=== PATIENT | female | born 1950 | race Caucasian/White ===

== ENCOUNTER → 2016-08-28 | Outpatient (CLI) | payer MEDICARE, BC, OTHER ==
--- NOTE | 2016-08-28 10:51 | REP ---
Low back pain. COMPARISON: 02/20/2014 There is syndesmophyte formation seen on the right at L1-2 with heavy partial syndesmophyte formation seen on the right at L2-3. These findings are stable. Vertebral body height and alignment is unchanged. The pedicles are intact bilaterally. There is anterior lipping at every level, heaviest at the L2-3 level with disc space narrowing, status quo. There is no evidence of spondylosis or spondylolisthesis. Degenerative facet joint change again seen at every level bilaterally. There is heavy syndesmophyte formation seen bilaterally involving the imaged lower thoracic spine. IMPRESSION: Chronic changes, as described above. Signed by Evaristo Anguiano DO 08/28/2016 11:36 A
--- NOTE | 2016-08-28 11:00 | REP ---
RIGHT HIP, PELVIS, THREE VIEWS: HISTORY: Back pain. There is no acute fracture or dislocation. There is narrowing of the joint spaces with associated sclerosis. IMPRESSION: Degenerative change as described above. Signed by Herbie Love MD 08/28/2016 11:05 A
[2016-08-28 13:29] LABS: ALBUMIN 3.6 GM/DL (3.2-5.2); ALBUMIN/GLOBULIN RATIO 1.16 (1.00-1.93); ALKALINE PHOSPHATASE 51 U/L (45-117); ALT/SGPT 23 U/L (12-78); ANION GAP 7 MEQ/L (8-16); AST/SGOT 10 U/L (15-37); BILIRUBIN,TOTAL 0.5 MG/DL (0.2-1.0); BLOOD UREA NITROGEN 16 MG/DL (7-18); CALCIUM LEVEL 8.7 MG/DL (8.8-10.2); CARBON DIOXIDE LEVEL 31 MEQ/L (21-32); CHLORIDE LEVEL 105 MEQ/L (98-107); CHOLESTEROL LEVEL 218 MG/DL (<200); CREATININE FOR GFR 0.86 MG/DL (0.55-1.02); FREE T4 1.17 NG/DL (0.76-1.46); GLOMERULAR FILTRATION RATE > 60.0 (>45); GLUCOSE, FASTING 84 MG/DL (80-110); MAGNESIUM LEVEL 2.4 MG/DL (1.8-2.4); POTASSIUM SERUM 4.8 MEQ/L (3.5-5.1); SODIUM LEVEL 143 MEQ/L (136-145); TOTAL PROTEIN 6.7 GM/DL (6.4-8.2); TRIGLYCERIDES LEVEL 215 MG/DL (<150)
== END ==
LOC: M ADAMS 08:19
PROVIDERS: ATTEND Family Medicine
DX: M51.36 Other intervertebral disc degeneration, lumbar region (principal); M25.851 Other specified joint disorders, right hip; M25.551 Pain in right hip; M54.5 Low back pain; G47.62 Sleep related leg cramps; R53.83 Other fatigue; E78.1 Pure hyperglyceridemia

== ENCOUNTER 2019-01-21 13:53 | Emergency (ER) | payer MEDICARE, BC, OTHER ==
[~2019-01-21] VITALS: Ht 162.6 cm; Wt 88.6 kg
[2019-01-21] MEDS: NORCO, ANEXSIA 5/325MG TABLET (HYDROcodone/ACETAMINOPHEN) PO ONE ×2 (14:43→14:45)
--- NOTE | 2019-01-21 18:19 | REP ---
HISTORY: Pain after trauma. FINDINGS: The compartments are symmetric and relatively well maintained. There is no acute fracture or destructive osseous lesion. Electronically Signed by Evaristo Anguiano DO 01/24/2019 02:32 P
[2019-01-21] MEDS ORDERED: IBUP-1114 PO (18:34)
[2019-01-21 18:43] VITALS: BP 182/82
--- NOTE | 2019-01-21 20:50 | REP ---
HISTORY: Knee pain. The examination was ordered and performed specifically to assess for Alonso's cyst. Multiple ultrasonographic images of the left knee popliteal fossa soft tissues shows no evidence of a cystic or solid mass. There is no evidence of a Alonso's cyst. Electronically Signed by Evaristo Anguiano DO 01/24/2019 02:52 P
== END 2019-01-21 19:15 | disposition home or self-care (01) ==
LOC: M ED 13:53 → EDBD 13:53 → M ED 19:15
DX: S93.402A Sprain of unspecified ligament of left ankle, initial encounter (principal); Z88.2 Allergy status to sulfonamides; X50.1XXA Overexertion from prolonged static or awkward postures, initial encounter; Y93.E8 Activity, other personal hygiene; Y99.8 Other external cause status; Y92.009 Unspecified place in unspecified non-institutional (private) residence as the place of occurrence of the external cause; F17.200 Nicotine dependence, unspecified, uncomplicated; M25.561 Pain in right knee

== ENCOUNTER → 2019-03-03 | Outpatient (REF) | payer MEDICARE, OTHER ==
[~2019-03-03] MED LIST: IBUP-1114 PO
[2019-03-08 11:34] LABS: DRVV SCREEN 36.5 SEC
[2019-03-08 11:40] LABS: PTT LUPUS TYPE ANTICOAG SCREEN 0.9 (0-1.2)
[2019-03-10 10:09] LABS: ANTI THROMBIN 3 ANTIGEN IMMUNO 98 % (72-124); ANTI THROMBIN 3 FUNCT ACTIVITY 106 % (75-135); F8 ACTIVITY FOR F8 PANEL 135 % (56-140); F8 ACTIVITY vWB FOR F8 PANEL 148 % (50-200); F8 ANTIGEN FOR F8 PANEL 228 % (50-200); FACTOR II ACTIVITY 108 % (50-154); PROTEIN C FUNCTIONAL ACTIVITY 176 % (73-180); PROTEIN S FUNCTIONAL ACTIVITY 18 % (63-140)
== END ==
LOC: M LABDRWAD 16:07
PROVIDERS: ATTEND Family Medicine
DX: I82.402 Acute embolism and thrombosis of unspecified deep veins of left lower extremity (principal)

== ENCOUNTER → 2019-04-07 | Outpatient (REF) | payer MEDICARE, OTHER ==
[2019-04-07 16:10] LABS: APPEARANCE, URINE HAZY (CLEAR); BACTERIA, URINE AUTO NEGATIVE (NEGATIVE); BILIRUBIN, URINE AUTO NEGATIVE (NEGATIVE); BLOOD, URINE BLOOD 2+ (NEGATIVE); COLOR, URINE YELLOW (YELLOW); GLUCOSE, URINE (UA) AUTO NEGATIVE (NEGATIVE); KETONE, URINE AUTO NEGATIVE (NEGATIVE); LEUKOCYTE ESTERASE, URINE AUTO NEGATIVE (NEGATIVE); MUCUS, URINE SMALL (NEGATIVE); NITRITE, URINE AUTO NEGATIVE (NEGATIVE); PROTEIN, URINE AUTO NEGATIVE (NEGATIVE); RBC, URINE AUTO 2 /HPF (0-3); SPECIFIC GRAVITY URINE AUTO 1.018 (1.002-1.035); SQUAMOUS EPITHELIAL CELL UR AU 4 /HPF (0-6); UROBILINOGEN, URINE AUTO 0.2 mg/dL (0.0-2.0); WBC, URINE AUTO 0 /HPF (0-3)
== END ==
LOC: M SFHCADAM 11:45
PROVIDERS: ATTEND Family Medicine
DX: Z87.448 Personal history of other diseases of urinary system (principal)
CPT/HCPCS: 81001; G0463

== ENCOUNTER → 2019-12-01 | Outpatient (REF) | payer MEDICARE, OTHER ==
[2019-12-01 15:08] LABS: BASO # 0.1 10^3/uL (0.0-0.2); BASO % 1.2 % (0.0-1.0); EOS # 0.2 10^3/uL (0.0-0.5); EOS % 4.3 % (0.0-3.0); HEMATOCRIT 45.2 % (36.0-47.0); HEMOGLOBIN 13.8 g/dl (12.0-15.5); LYMPH # 1.3 10^3/uL (1.5-5.0); LYMPH % 26.5 % (24.0-44.0); MEAN CORPUSCULAR HEMOGLOBIN 30.6 pg (27.0-33.0); MEAN CORPUSCULAR HGB CONC 30.5 g/dl (32.0-36.5); MEAN CORPUSCULAR VOLUME 100.2 fl (80.0-96.0); MONO # 0.4 10^3/uL (0.0-0.8); MONO % 8.5 % (0.0-5.0); NEUTROPHILS % 59.3 % (36.0-66.0); PLATELET COUNT, AUTOMATED 300 10^3/uL (150-450); RED BLOOD COUNT 4.51 10^6/uL (4.00-5.40); WHITE BLOOD COUNT 5.1 10^3/uL (4.0-10.0)
[2019-12-01 15:36] LABS: ALBUMIN 3.8 GM/DL (3.2-5.2); ALT/SGPT 19 U/L (12-78); BILIRUBIN,TOTAL 0.6 MG/DL (0.2-1.0); BLOOD UREA NITROGEN 11 MG/DL (7-18); CALCIUM LEVEL 9.3 MG/DL (8.8-10.2); CARBON DIOXIDE LEVEL 32 MEQ/L (21-32); CHLORIDE LEVEL 105 MEQ/L (98-107); CREATININE FOR GFR 0.78 MG/DL (0.55-1.30); GLOMERULAR FILTRATION RATE > 60.0 (>39); GLUCOSE, FASTING 83 MG/DL (70-100); POTASSIUM SERUM 4.9 MEQ/L (3.5-5.1); SODIUM LEVEL 141 MEQ/L (136-145)
[2019-12-01 15:40] LABS: ERYTHROCYTE SEDIMENTATION RATE 6 mm/hr (0-30)
== END ==
LOC: M LABDRWAD 13:58
PROVIDERS: ATTEND Physician Assistant
DX: L95.8 Other vasculitis limited to the skin (principal)

== ENCOUNTER → 2020-07-25 | Outpatient (CLI) | payer MEDICARE, BC ==
[2020-07-25 16:37] LABS: BASO # 0.1 10^3/uL (0.0-0.2); BASO % 0.8 % (0.0-1.0); EOS # 0.1 10^3/uL (0.0-0.5); HEMATOCRIT 45.1 % (36.0-47.0); HEMOGLOBIN 14.3 g/dl (12.0-15.5); LYMPH # 1.6 10^3/uL (1.5-5.0); LYMPH % 24.7 % (24.0-44.0); MEAN CORPUSCULAR HGB CONC 31.7 g/dl (32.0-36.5); MEAN CORPUSCULAR VOLUME 97.6 fl (80.0-96.0); MONO # 0.5 10^3/uL (0.0-0.8); MONO % 7.3 % (2.0-8.0); NEUTROPHILS # 4.3 10^3/uL (1.5-8.5); PLATELET COUNT, AUTOMATED 326 10^3/uL (150-450); RED BLOOD COUNT 4.62 10^6/uL (4.00-5.40); WHITE BLOOD COUNT 6.6 10^3/uL (4.0-10.0)
[2020-07-25 17:03] LABS: ALBUMIN 4.2 GM/DL (3.2-5.2); ALT/SGPT 20 U/L (12-78); BILIRUBIN,TOTAL 0.6 MG/DL (0.2-1.0); BLOOD UREA NITROGEN 10 MG/DL (7-18); CALCIUM LEVEL 10.1 MG/DL (8.8-10.2); CARBON DIOXIDE LEVEL 33 MEQ/L (21-32); CHLORIDE LEVEL 104 MEQ/L (98-107); CREATININE FOR GFR 0.74 MG/DL (0.55-1.30); GLOMERULAR FILTRATION RATE > 60.0 (>39); GLUCOSE, FASTING 104 MG/DL (70-100); NT-PRO BNP 106 PG/ML (<125); POTASSIUM SERUM 4.2 MEQ/L (3.5-5.1); SODIUM LEVEL 141 MEQ/L (136-145); TOTAL PROTEIN 7.3 GM/DL (6.4-8.2)
--- NOTE | 2020-07-25 17:15 | REP ---
INDICATION: PAIN AND SWELLING / CT IS STAT / LAB IS ROUTINE. COMPARISON: None. TECHNIQUE: Multiple ultrasonographic images of the deep venous structures of the right thigh were obtained from the common femoral vein to the popliteal vein along with Doppler interrogation and color flow Doppler images. FINDINGS: There is no abnormal echogenic material seen within any of the visualized deep venous structures that would suggest acute thrombosis. Coaptation is unremarkable throughout. Doppler interrogation shows an expected response to respiratory variability and augmentation. The color flow images show what appears to be a normal vascular pattern throughout. IMPRESSION: There is no ultrasonographic evidence of deep venous thrombosis involving any of the visualized deep venous structures of the right thigh, as described above. <Electronically signed by Evaristo Anguiano > 07/25/20 [id number]
== END ==
LOC: M RAD 15:13
PROVIDERS: ATTEND Family Medicine
DX: R60.9 Edema, unspecified (principal)
CPT/HCPCS: 36415; 80053; 83880; 84439; 84443; 85025; 93971; G0463

== ENCOUNTER → 2020-09-26 | Outpatient (CLI) | payer MEDICARE, BC, OTHER ==
--- NOTE | 2020-09-26 13:35 | REP ---
INDICATION: DYSPNEA ON EXERTION. COMPARISON: None. TECHNIQUE: PA and lateral FINDINGS: The superior mediastinal structures are midline. The cardiac silhouette is unremarkable in size, shape, and position. The diaphragmatic surfaces of the lungs are regular, and the costophrenic angles are clear. The pulmonary bourgeois are clear. The imaged osseous structures are intact. IMPRESSION: There is no acute cardiopulmonary disease. <Electronically signed by Evaristo Anguiano > 09/26/20 [id number]
== END ==
LOC: M ADAMS 12:51
PROVIDERS: ATTEND Family Medicine
DX: R06.00 Dyspnea, unspecified (principal)
CPT/HCPCS: 71046; G0463

== ENCOUNTER 2021-02-14 13:43 | Emergency (ER) | payer MEDICARE, BC, OTHER ==
[~2021-02-14] VITALS: Ht 162.6 cm; Wt 85.5 kg
--- OUTSIDE RECORDS SUMMARY | 2021-02-14 13:53 | CCD | Continuity of Care Document ---
Author Author [facility], [facility] Organization Unknown Address [address] [place] [address] Phone [phone] Care Team Providers Care Cell Stripper Final Name Role Phone Magaly Regalado D.O. AUTM [phone] AUTM Unavailable Problems Active Problems Provider Date Pulmonary function studies abnormal Odette BuckNPardeep Onse t: 01/10/2021 Wheezing Odette BuckN.PLondon Onset: 01/10/2021 Dyspnea Odette BuckNPardeep Onset: 01/10/2021 Social History Type Date Description Comments Sex Unknown Cigarette Use Pack Years - 48 Tobacco Use Start: Unknown Patient is a current smoker, smo kes every day Smoking Status Reviewed: 01/10/21 Patient is a current smoker, smokes every day Allergies and adverse reactions Active Allergies Criticality Reaction | Severity Comments Date Sulfa Unable to assess criticality Difficulty breathing, Hiv es | Severe 01/10/2021 Medications Active Medications SIG Qnty Indications Ordering Provide r Date Albuterol Sulfate HFA 108(90Base) mcg/Act Aerosol 2 puffs four times a day as needed 8.500gm Pretty Narayanan.N.P. 01/10/2021 Aerochamber Plus Librado-Vu Misc use with inhaler as needed 1units Pretty uBck.N.P. 01/10/2021 Vitamin D3 25mcg (1000 Ut) Capsule s 1 tab by mouth every day Unknown Multi Vitamin Tablets 1 by mouth every day Unknown Immunizations Description No Information Available Vital Signs Date Vital Result Comment 01/10/2021 2:01pm BP Systolic 140 mmHg BP Diastolic 76 mmHg Heart Rate 80 /min O2 % BldC Oximetry 98 % Respiratory Rate 18 /min Height 64 inches 5'4" Weight 189.12 lb BMI (Body Mass Index) 32.5 kg/m2 [place] Body Weight 120 lb Weight 85.787 kg BSA (Body Surface Area) 1.91 m2 Results Test Acquired Date Facility Test Result H/L Range Note FVL/[place] 01/10/2021 [facility] SEE IMAGE FVC-Pred 2.93 L FVC-Pre 1.58 L FVC-%Pred-Pre 54 L FVC-LLN 2.23 L Fev1-Pred 2.21 L Fev1-Pre 1.14 L Fev1-%Pred-Pre 51 L Fev1-LLN 1.62 L Fev6-Pred 2.79 L Fev6-Pre 1.58 L Fev6-%Pred-Pre 56 L Fev6-LLN 2.11 L Qiw4bkb-Lvqg 76 % Pwm8onn-Xje 72 % Qgv7cwv-%Pred-Pre 94 % Ndv3taf-BRK 66 % Rvb1fiu-Dglr 95 % Hqi0frg-Yvj 100 % Fxz7igj-%Pred-Pre 104 % FEFMax-Pred 5.49 L/E/sec FEFMax-Pre 2.04 L/E/sec FEFMax-%Pred-Pre 37 L/E/sec FEFMax-LLN 3.78 L/E/sec Tpb3978-Yoaa 1.80 L/E/sec Utp5964-Mpq 0.84 L/E/sec Vce8013-%Pred-Pre 46 L/E/sec Gma7442-YVL 0.56 L/E/sec ExpTime-Pre 6.19 sec Jbq2ycg0-Ogxk 79 % Szz8sox3-Fdo 72 % Axi8dew1-%Pred-Pre 90 % Wqs6rvy5-ISI 70 % Procedures Date Code Description Status 01/10/2021 83150 Office/Outpatient New Moderate M DM 45-59 Minutes Completed 01/10/2021 22552 Inhaler Teaching Completed 01/10/2021 04196 Spirometry Completed Medical Devices Description No Information Available Encounters Type Date Location Provider Dx Diagnosis Office Visit 01/10/2021 2:00p [facility] Grisel To wne, A.N.P. R06.02 Shortness of breath F17.218 Nicotine dependence, cigaret mary, w oth disorders R94.2 Abnormal results of pulmonar y function studies R05.9 Cough, unspecified R06.2 Wheezing Assessments Date Code Description Provider 01/25/2021 R06.02 Shortness of breath Pulmonary La [facility] 01/10/2021 R06.02 Shortness of breath Odette BuckNPardeep 01/10/2021 F17.218 Nicotine dependence, cigarettes, with other nicotine-induced disorders Loan Buck 01/10/2021 R94.2 Abnormal results of pulmonary fu nction studies Loan Buck 01/10/2021 R05.9 Cough, unspecified Pretty Buck .N.P. 01/10/2021 R06.2 Wheezing Sheron Buck Plan of Treatment Future Appointment(s):* 02/05/2021 9:30 am - Loan Buck at [facility] 01/10/2021 - Odette BuckNPardeep* R06.02 Shortness of breath * F17.218 Nicotine dependence, cigarettes, with other nicotine-induced disorders * R94.2 Abnormal results of pulmonary function studies * R05.9 Cough, unspecified * R06.2 Wheezing * * Follow up:* 1. Schedule pulmonary function testing with bronchodilator. 2. Return to see me/doctor in follow up with pulmonary function testing. Functional Status Description No Information Available Mental Status Description No Information Available Referrals Refer to Dr Reason for Referral Status Appt Grisel Carlos A.N.P. SILVEIRA Scheduled 01/08/2021 [facility] [address] [place], [place] [address] [phone]
--- OUTSIDE RECORDS SUMMARY | 2021-02-14 13:53 | CCD | Continuity of Care Document ---
Author Author Pulmonary [facility], [facility] Organization Unknown Address [address] [place] [address] Phone [phone] Care Team Providers Care Music Engraver Name Role Phone Magaly Regalado D.O. AUTM [phone] AUTM Unavailable Problems Active Problems Provider Date [...] use with inhaler as needed 1units Pretty Buck.N.P. 01/10/2021 Vitamin D3 25mcg (1000 Ut) Capsule [...] lb BMI (Body Mass Index) 32.5 kg/m2 [place] Body Weight 120 lb Weight 85.787 kg BSA (Body Surface Area) 1.91 m2 Results Test Acquired Date Facility Test Result H/L Range Note FVL/[place] 01/10/2021 [facility] SEE IMAGE FVC-Pred 2.93 L FVC-Pre 1.58 L FVC-%Pred-Pre 54 L FVC-LLN 2.23 L Fev1-Pred 2.21 L Fev1-Pre 1.14 L Fev1-%Pred-Pre 51 L Fev1-LLN 1.62 L Fev6-Pred 2.79 L Fev6-Pre 1.58 L Fev6-%Pred-Pre 56 L Fev6-LLN 2.11 L Mhi0gsa-Enzy 76 % Kbr8vau-Ccm 72 % Vwe3egj-%Pred-Pre 94 % Igg0vuk-WUD 66 % Ljf4lqf-Mmiy 95 % Fvn1uol-Rtt 100 % Dwb9jrk-%Pred-Pre 104 % FEFMax-Pred 5.49 L/E/sec FEFMax-Pre 2.04 L/E/sec FEFMax-%Pred-Pre 37 L/E/sec FEFMax-LLN 3.78 L/E/sec Cny6750-Bagz 1.80 L/E/sec Beu4062-Eoq 0.84 L/E/sec Tcg1807-%Pred-Pre 46 L/E/sec Ayr8941-SNL 0.56 L/E/sec ExpTime-Pre 6.19 sec Nsw1olu3-Efxk 79 % Irw2hdp4-Arl 72 % Rau4flv2-%Pred-Pre 90 % Wwz9ide9-VTX 70 % Procedures Date Code Description Status 01/25/2021 13529 Diffusing Capacity Completed 01/25/2021 24376 Plethysmography Determination Kerline ng Volumes & Per Airway Resist Completed 01/25/2021 62562 Bronchospasm Evaluation Complete d 01/10/2021 17067 Office/Outpatient New Moderate M DM 45-59 Minutes Completed 01/10/2021 97191 Inhaler Teaching Completed 01/10/2021 00754 Spirometry Completed Medical Devices Description No Information Available Encounters Type Date Location Provider Dx Diagnosis Office Visit 01/10/2021 2:00p [facility] Grisel To Odette warrenNPardeep R06.02 Shortness of breath F17.218 Nicotine dependence, [...] Loan Buck 01/10/2021 R05.9 Cough, unspecified Pretty BuckNPardeep 01/10/2021 R06.2 Wheezing Sheron Buck Plan of Treatment Future Appointment(s):* 02/05/2021 9:30 am - Loan Buck at [facility] Pulmonary/Thoracic 01/10/2021 - Loan Buck* R06.02 Shortness of breath * F17.218 Nicotine [...] to Dr Reason for Referral Status Appt Date Grisel Marcos A.N.P. DOE Scheduled 01/08/2021 [facility] [address] [place], [place] [address] [phone]
--- OUTSIDE RECORDS SUMMARY | 2021-02-14 13:53 | CCD | Continuity of Care Document ---
Author Author Pulmonary Lab, [facility] Organization Unknown Address [address] [place] [address] Phone [phone] Care Team Providers Care Customer Resolution Specialist Name Role Phone Magaly Regalado D.O. AUTM [phone] AUTM Unavailable Problems Active Problems Provider Date [...] four times a day as needed 8.500gm Pertty Narayanan.N.P. 01/10/2021 Aerochamber Plus Librado-Vu Misc use [...] lb BMI (Body Mass Index) 32.5 kg/m2 [place] Body Weight 120 lb Weight 85.787 kg BSA (Body Surface Area) 1.91 m2 Results Test Acquired Date Facility Test Result H/L Range Note FVL/[place] 01/10/2021 [facility] SEE IMAGE FVC-Pred 2.93 L FVC-Pre 1.58 L FVC-%Pred-Pre 54 L FVC-LLN 2.23 L Fev1-Pred 2.21 L Fev1-Pre 1.14 L Fev1-%Pred-Pre 51 L Fev1-LLN 1.62 L Fev6-Pred 2.79 L Fev6-Pre 1.58 L Fev6-%Pred-Pre 56 L Fev6-LLN 2.11 L Plg0oqr-Csms 76 % Nhi6dsn-Asd 72 % Zxw5gye-%Pred-Pre 94 % Kme9fzd-SDU 66 % Qjr6zbj-Ydjw 95 % Njz6bpy-Lnz 100 % Ell2uvs-%Pred-Pre 104 % FEFMax-Pred 5.49 L/E/sec FEFMax-Pre 2.04 L/E/sec FEFMax-%Pred-Pre 37 L/E/sec FEFMax-LLN 3.78 L/E/sec Owt9682-Sksg 1.80 L/E/sec Yfb9268-Aou 0.84 L/E/sec Psh1708-%Pred-Pre 46 L/E/sec Qni9904-FTT 0.56 L/E/sec ExpTime-Pre 6.19 sec Dqh0ncm5-Xboq 79 % Hqt6rsk0-Bks 72 % Gzp3wcn6-%Pred-Pre 90 % Hhe2lvt5-SCL 70 % Procedures Date Code Description Status 01/10/2021 60394 Office/Outpatient New Moderate M DM 45-59 Minutes Completed 01/10/2021 25827 Inhaler Teaching Completed 01/10/2021 89221 Spirometry Completed Medical Devices Description No Information Available Encounters Type Date Location Provider Dx Diagnosis Office Visit 01/10/2021 2:00p [facility] Grisel To wne, A.N.P. R06.02 Shortness [...] 02/05/2021 9:30 am - Loan Buck at [facility] 01/10/2021 - Odette BuckNPardeep* R06.02 Shortness [...] Appt Grisel Carlos A.N.P. SILVEIRA Scheduled 01/08/2021 [facility] Pul[facility] [address] [place], [place] [address] [phone]
--- OUTSIDE RECORDS SUMMARY | 2021-02-14 13:54 | CCD | Continuity of Care Document ---
Author Author Pulmonary Lab, [facility] Organization Unknown Address [address] [place] [address] Phone [phone] Care Team Providers Care Diver Pumper Name Role Phone Magaly Regalado D.O. AUTM [phone] AUTM Unavailable Problems Active Problems Provider Date [...] lb BMI (Body Mass Index) 32.5 kg/m2 [place] Body Weight 120 lb Weight 85.787 kg BSA (Body Surface Area) 1.91 m2 Results Test Acquired Date Facility Test Result H/L Range Note FVL/[place] 01/10/2021 [facility] SEE IMAGE FVC-Pred 2.93 L FVC-Pre 1.58 L FVC-%Pred-Pre 54 L FVC-LLN 2.23 L Fev1-Pred 2.21 L Fev1-Pre 1.14 L Fev1-%Pred-Pre 51 L Fev1-LLN 1.62 L Fev6-Pred 2.79 L Fev6-Pre 1.58 L Fev6-%Pred-Pre 56 L Fev6-LLN 2.11 L Cir7dod-Srvl 76 % Ltq4hnz-Qbe 72 % Swh5zog-%Pred-Pre 94 % Mku6gfl-ZZU 66 % Lpz2itf-Fsxd 95 % Qqu6ktv-Eki 100 % Hoc7uep-%Pred-Pre 104 % FEFMax-Pred 5.49 L/E/sec FEFMax-Pre 2.04 L/E/sec FEFMax-%Pred-Pre 37 L/E/sec FEFMax-LLN 3.78 L/E/sec Qag1550-Gjzp 1.80 L/E/sec Zru6281-Xzh 0.84 L/E/sec Nyz1170-%Pred-Pre 46 L/E/sec Esv0472-UJF 0.56 L/E/sec ExpTime-Pre 6.19 sec Txu3ekv5-Lsij 79 % Shv1tpz3-Zwc 72 % Lno2xcr5-%Pred-Pre 90 % Plh0egz9-HTW 70 % Procedures Date Code Description Status 01/10/2021 09585 Office/Outpatient New Moderate M DM 45-59 Minutes Completed 01/10/2021 15445 Inhaler Teaching Completed 01/10/2021 62786 Spirometry Completed Medical Devices Description No Information Available Encounters Type Date Location Provider Dx Diagnosis Office Visit 01/10/2021 2:00p [facility] Grisel To wne, A.N.P. R06.02 Shortness [...] 02/05/2021 9:30 am - Loan Buck at [facility] 01/10/2021 - dOette BuckNPardeep* R06.02 Shortness of breath * F17.218 [...] Appt Grisel Carlos A.N.P. SILVEIRA Scheduled 01/08/2021 [facility] [address] [place], [place] [address] [phone]
--- OUTSIDE RECORDS SUMMARY | 2021-02-14 13:54 | CCD | Continuity of Care Document ---
Author Rose[facility] arie Arias Organization Unknown Address [address] [place] [address] Phone [phone] Care Team Providers Care Assistant Editor Name Role Phone Magaly Regalado D.O. AUTM AUTM Unavailable Problems Active Problems Provider Date Pulmonary function studies abnormal Loan Buck Onse t: 01/10/2021 Wheezing Loan Buck Onset: 01/10/2021 Dyspnea Loan Buck Onset: 01/10/2021 Social History Type Date Description [...] four times a day as needed 8.500gm Odette NarayananNPardeep 01/10/2021 Aerochamber Plus Librado-Vu Misc use with inhaler as needed 1units Odette BuckNLondonPLondon 01/10/2021 Vitamin D3 25mcg (1000 Ut) Capsule [...] lb BMI (Body Mass Index) 32.5 kg/m2 [place] Body Weight 120 lb Weight 85.787 kg BSA (Body Surface Area) 1.91 m2 Results Test Acquired Date Facility Test Result H/L Range Note FVL/[place] 01/10/2021 [facility] SEE IMAGE FVC-Pred 2.93 L FVC-Pre 1.58 L FVC-%Pred-Pre 54 L FVC-LLN 2.23 L Fev1-Pred 2.21 L Fev1-Pre 1.14 L Fev1-%Pred-Pre 51 L Fev1-LLN 1.62 L Fev6-Pred 2.79 L Fev6-Pre 1.58 L Fev6-%Pred-Pre 56 L Fev6-LLN 2.11 L Eyn3cxc-Epcd 76 % Oau3pyg-Auz 72 % Lgt3ufa-%Pred-Pre 94 % Djy5mqm-OAZ 66 % Vsn6vxz-Pywa 95 % Pkm7owf-Oce 100 % Eyh1ret-%Pred-Pre 104 % FEFMax-Pred 5.49 L/E/sec FEFMax-Pre 2.04 L/E/sec FEFMax-%Pred-Pre 37 L/E/sec FEFMax-LLN 3.78 L/E/sec Pwb2158-Yeyf 1.80 L/E/sec Cft0284-Ldf 0.84 L/E/sec Avq9929-%Pred-Pre 46 L/E/sec Frk1508-AXC 0.56 L/E/sec ExpTime-Pre 6.19 sec Xbc1ibx6-Mkpp 79 % Efi4oat6-Ipd 72 % Wde6phi6-%Pred-Pre 90 % Ahr9qmh3-LPY 70 % Procedures Date Code Description Status 01/10/2021 00848 Office/Outpatient New Moderate M DM 45-59 Minutes Completed 01/10/2021 18785 Inhaler Teaching Completed 01/10/2021 90841 Spirometry Completed Medical Devices Description No Information Available Encounters Type Date Location Provider Dx Diagnosis Office Visit 01/10/2021 2:00p [facility] Grisel To wne, A.N.P. R06.02 Shortness of breath F17.218 Nicotine dependence, cigaret mary, w oth disorders R94.2 Abnormal results of pulmonar y function studies R05.9 Cough, unspecified R06.2 Wheezing Assessments Date Code Description Provider 01/10/2021 R06.02 Shortness of breath Odette BuckN.PLondon 01/10/2021 F17.218 Nicotine dependence, cigarettes, with other nicotine-induced disorders Odette BuckNPardeep 01/10/2021 R94.2 Abnormal results of pulmonary fu nction studies Odette BuckN.PLondon 01/10/2021 R05.9 Cough, unspecified Pretty BuckN.Ha 01/10/2021 R06.2 Wheezing Odette BuckNLondon Bonner Plan of Treatment Future Appointment(s):* 02/05/2021 9:30 am - Odette BuckN.Ha at [facility] Pulmonary/Thoracic * 01/25/2021 3:00 pm - Pulmonary Lab at [facility] Pulmonary/Thoracic 01/10/2021 - Odette BuckN.Ha* R06.02 Shortness of breath * F17.218 Nicotine dependence, cigarettes, with other nicotine-induced disorders * R94.2 Abnormal results of pulmonary function studies * R05.9 Cough, unspecified * R06.2 Wheezing * * New Labs:* PFT/HGB Off/No Meds, Ordered: 01/10/21 * Follow up:* 1. Schedule pulmonary function testing with bronchodilator. 2. Return to see me/doctor in follow up with pulmonary function testing. Functional Status Description No Information Available Mental Status Description No Information Available Referrals Refer to Dr Reason for Referral Status Appt Grisel Carlos A.NPardeep SILVEIRA Scheduled 01/08/2021 [facility] Pul[facility] [address] [place], [place] [address] [phone]
--- OUTSIDE RECORDS SUMMARY | 2021-02-14 13:54 | CCD | Continuity of Care Document ---
Author Rose Marie Arias Organization Unknown Address [address] [place] [address] Phone [phone] Care Team Providers Care Salvage Mechanic Name Role Phone Magaly Regalado D.O. AUTM AUTM Unavailable Problems Active Problems Provider Date Pulmonary function studies abnormal RAMIRO Buck Onse t: 01/10/2021 Wheezing RAMIRO Buck Onset: 01/10/2021 Dyspnea RAMIRO Buck Onset: 01/10/2021 Social History Type Date [...] four times a day as needed 8.500gm RAMIRO Narayanan 01/10/2021 Aerochamber Plus Librado-Vu Misc use with inhaler as needed 1units RAMIRO Buck 01/10/2021 Vitamin D3 25mcg (1000 Ut) Capsule [...] lb BMI (Body Mass Index) 32.5 kg/m2 [place] Body Weight 120 lb Weight 85.787 kg [...] L Fev6-%Pred-Pre 56 L Fev6-LLN 2.11 L Bbi3srn-Cyvy 76 % Gpv7msl-Xhv 72 % Cmv7ogf-%Pred-Pre 94 % Hkv3uby-XDK 66 % Rsr6axc-Ofms 95 % Vir8tba-Meh 100 % Pxu7rna-%Pred-Pre 104 % FEFMax-Pred 5.49 L/E/sec FEFMax-Pre 2.04 L/E/sec FEFMax-%Pred-Pre 37 L/E/sec FEFMax-LLN 3.78 L/E/sec Ren3947-Vtuh 1.80 L/E/sec Gto3261-Vkv 0.84 L/E/sec Jbg3111-%Pred-Pre 46 L/E/sec Dgg0642-DWF 0.56 L/E/sec ExpTime-Pre 6.19 sec Tll1xwd8-Qkxj 79 % Wlv7sll2-Fqz 72 % Gir0aas7-%Pred-Pre 90 % Ubr6qdw2-CCE 70 % Procedures Description No Information Available Medical Devices Description No Information Available Encounters Description No Information Available Assessments Date Code Description Provider 01/10/2021 R06.02 Shortness of breath RAMIRO Buck 01/10/2021 F17.218 Nicotine dependence, cigarettes, with other nicotine-induced disorders RAMIRO Buck 01/10/2021 R94.2 Abnormal results of pulmonary fu nction studies RAMIRO Buck 01/10/2021 R05.9 Cough, unspecified Pretty Buck TELEPHONE SWITCHBOARD OPERATOR 01/10/2021 R06.2 Wheezing RAMIRO Buck Plan of Treatment Future Appointment(s):* 02/05/2021 9:30 am - RAMIRO Buck at [facility] Pulmonary/Thoracic * 01/25/2021 3:00 pm - Pulmonary Lab at [facility] Pulmonary/Thoracic 01/10/2021 - RAMIRO Buck* R06.02 Shortness of breath * F17.218 [...] Date Grisel Marcos A.N.P. DOE Scheduled 01/08/2021 [facility] [address] [place], [place] [address] [phone]
--- OUTSIDE RECORDS SUMMARY | 2021-02-14 13:54 | CCD | Continuity of Care Document ---
Author Rose Marie Arias Organization Unknown Address [address] [place] [address] Phone [phone] Care Team Providers Care Machine Hand Name Role Phone Magaly Regalado D.O. AUTM [...] lb BMI (Body Mass Index) 32.5 kg/m2 [place] Body Weight 120 lb Weight 85.787 kg [...] L Fev6-%Pred-Pre 56 L Fev6-LLN 2.11 L Dka1usy-Etsx 76 % Rrn3iwz-Efs 72 % Shh0pur-%Pred-Pre 94 % Ekd7fie-ORI 66 % Pwp9hmf-Fgvm 95 % Dry8nzx-Dwy 100 % Lwh0twx-%Pred-Pre 104 % FEFMax-Pred 5.49 L/E/sec FEFMax-Pre 2.04 L/E/sec FEFMax-%Pred-Pre 37 L/E/sec FEFMax-LLN 3.78 L/E/sec Gev8544-Vrfd 1.80 L/E/sec Yez1813-Egi 0.84 L/E/sec Hor8748-%Pred-Pre 46 L/E/sec Szc0151-NUJ 0.56 L/E/sec ExpTime-Pre 6.19 sec Tsf8rbo6-Iedb 79 % Vlm5tdq9-Fkk 72 % Zfn9sbh0-%Pred-Pre 90 % Gsi4trs4-BVI 70 % Procedures Description No Information Available Medical Devices Description No Information Available Encounters Description No Information Available Assessments Date Code Description Provider 01/10/2021 R06.02 Shortness of breath RAMIRO Buck 01/10/2021 F17.218 Nicotine dependence, cigarettes, with other nicotine-induced disorders RAMIRO Buck 01/10/2021 R94.2 Abnormal results of pulmonary fu nction studies RAMIRO Buck 01/10/2021 R05.9 Cough, unspecified Pretty Buck MILITARY TECHNOLOGY MANAGER 01/10/2021 R06.2 Wheezing RAMIRO Buck Plan of Treatment Future Appointment(s):* 02/05/2021 9:30 am - RAMIRO Buck at [facility] Pulmonary/Thoracic * 01/25/2021 3:00 pm - Pulmonary Lab at [facility] Pulmonary/Thoracic 01/10/2021 - RAMIRO Buck* R06.02 Shortness [...] Date Grisel Marcos A.N.P. DOE Scheduled 01/08/2021 [facility] Pulmonary [address] [place], [place] [address] [phone]
--- OUTSIDE RECORDS SUMMARY | 2021-02-14 13:54 | CCD | Continuity of Care Document ---
Author Rose Marie Arias Organization Unknown Address [address] [place] [address] Phone [phone] Care Team Providers Care Science Interpreter Name Role Phone Magaly Regalado D.O. AUTM [phone] AUTM Unavailable Problems Active Problems Provider Date [...] lb BMI (Body Mass Index) 32.5 kg/m2 [place] Body Weight 120 lb Weight 85.787 kg [...] L Fev6-%Pred-Pre 56 L Fev6-LLN 2.11 L Omv6mao-Qziv 76 % Mab9rci-Okw 72 % Wad9sfd-%Pred-Pre 94 % Mvu5ceh-PVA 66 % Tei1siu-Ddwl 95 % Psh5oso-Agg 100 % Rst4fhr-%Pred-Pre 104 % FEFMax-Pred 5.49 L/E/sec FEFMax-Pre 2.04 L/E/sec FEFMax-%Pred-Pre 37 L/E/sec FEFMax-LLN 3.78 L/E/sec Dvx2143-Qzwb 1.80 L/E/sec Qyb7424-Ney 0.84 L/E/sec Ktq5344-%Pred-Pre 46 L/E/sec Vgf8445-AAP 0.56 L/E/sec ExpTime-Pre 6.19 sec Toe1sdb5-Puyb 79 % Kud9uxo8-Enk 72 % Hqe1swc5-%Pred-Pre 90 % Ruv1npc5-POS 70 % Procedures Description No Information Available Medical Devices Description No Information Available Encounters Description No Information Available Assessments Date Code Description Provider 01/10/2021 R06.02 Shortness of breath RAMIRO Buck 01/10/2021 F17.218 Nicotine dependence, cigarettes, with other nicotine-induced disorders RAMIRO Buck 01/10/2021 R94.2 Abnormal results of pulmonary fu nction studies RAMIRO Buck 01/10/2021 R05.9 Cough, unspecified Pretty Buck INFRASTRUCTURE ANALYST 01/10/2021 R06.2 Wheezing RAMIRO Buck Plan of Treatment Future Appointment(s):* 02/05/2021 9:30 am - RAMIRO Buck at [facility] Pulmonary/Thoracic * 01/25/2021 3:00 pm - Pulmonary Lab at [facility] Pulmonary/Thoracic 01/10/2021 - RAMIRO Buck* R06.02 Shortness [...] Date Grisel Marcos A.N.P. DOE Scheduled 01/08/2021 [facility] Pulmonary [address] [place], [place] [address] [phone]
--- OUTSIDE RECORDS SUMMARY | 2021-02-14 13:54 | CCD ---
Author Author [facility] Organization [facility] Address Unknown Phone Unavailable Care Team Providers Care Unleavened Dough Mixer Name Role Phone Hemant, L Grisel CABINET WORKER Unavailable Unavailable Hemant, L Grisel CABINET WORKER Unavailable Unavailable Hemant, L Grisel CABINET WORKER Unavailable Unavailable Hemant, L Grisel CABINET WORKER Unavailable Unavailable Hemant, L Grisel CABINET WORKER Unavailable Unavailable Hemant, L Grisel CABINET WORKER Unavailable Unavailable Hemant, L Grisel CABINET WORKER Unavailable Unavailable Hemant, L Grisel CABINET WORKER Unavailable Unavailable Hemant, L Grisel CABINET WORKER Unavailable Unavailable Hemant, L Grisel CABINET WORKER Unavailable Unavailable Hemant, L Grisel CABINET WORKER Unavailable Unavailable Hemant, L Grisel CABINET WORKER Unavailable Unavailable Hemant, L Grisel CABINET WORKER Unavailable Unavailable Hemant, L Grisel CABINET WORKER Unavailable Unavailable Hemant, L Grisel CABINET WORKER Unavailable Unavailable Hemant, L Grisel CABINET WORKER Unavailable Unavailable Hemant, L Grisel CABINET WORKER Unavailable Unavailable Hemant, L Grisel CABINET WORKER Unavailable Unavailable Hemant, L Grisel CABINET WORKER Unavailable Unavailable Hemant, L Grisel CABINET WORKER Unavailable Unavailable Hemant, L Grisel CABINET WORKER Unavailable Unavailable Hemant, L Grisel CABINET WORKER Unavailable Unavailable Hemant, L Grisel CABINET WORKER Unavailable Unavailable Hemant, L Grisel CABINET WORKER Unavailable Unavailable Hemant, L Grisel CABINET WORKER Unavailable Unavailable ADOLFO-YADIRA, BRODY DO Unavailable Unavailable ADOLFO-YADIRA, BRODY DO Unavailable Unavailable ADOLFO-YADIRA, BRODY DO Unavailable Unavailable ADOLFO-YADIRA, BRODY DO Unavailable Unavailable ADOLFO-YADIRA, BRODY DO Unavailable Unavailable ADOLFO-YADIRA, BRODY DO Unavailable Unavailable ADOLFO-YADIRA, BRODY DO Unavailable Unavailable ADOLFO-YADIRA, BRODY DO Unavailable Unavailable ADOLFO-YADIRA, BRODY DO Unavailable Unavailable ADOLFO-YADIRA, BRODY DO Unavailable Unavailable ADOLFO-YADIRA, BRODY DO Unavailable Unavailable ADOLFO-YADIRA, BRODY DO Unavailable Unavailable ADOLFO-YADIRA, BRODY DO Unavailable Unavailable ADOLFO-YADIRA, BRODY DO Unavailable Unavailable ADOLFO-YADIRA, BRODY DO Unavailable Unavailable ADOLFO-YADIRA, BRODY DO Unavailable Unavailable ADOLFO-YADIRA, BRODY DO Unavailable Unavailable ADOLFO-YADIRA, BRODY DO Unavailable Unavailable ADOLFO-YADIRA, BRODY DO Unavailable Unavailable ADOLFO-YADIRA, BRODY DO Unavailable Unavailable ADOLFO-YADIRA, BRODY DO Unavailable Unavailable ADOLFO-YADIRA, BRODY DO Unavailable Unavailable ADOLFO-YADIRA, BRODY DO Unavailable Unavailable ADOLFO-YADIRA, BRODY DO Unavailable Unavailable ADOLFO-YADIRA, BRODY DO Unavailable Unavailable ADOLFO-YADIRA, BRODY DO Unavailable Unavailable ADOLFO-YADIRA, BRODY DO Unavailable Unavailable ADOLFO-YADIRA, BRODY DO Unavailable Unavailable ADOLFO-YADIRA, BRODY DO Unavailable Unavailable ADOLFO-YADIRA, BRODY DO Unavailable Unavailable ADOLFO-YADIRA, BRODY DO Unavailable Unavailable ADOLFO-YADIRA, BRODY DO Unavailable Unavailable ADOLFO-YADIRA, BRODY DO Unavailable Unavailable ADOLFO-YADIRA, BRODY DO Unavailable Unavailable ADOLFO-YADIRA, BRODY DO Unavailable Unavailable ADOLFO-YADIRA, BRODY DO Unavailable Unavailable ADOLFO-YADIRA, BRODY DO Unavailable Unavailable ADOLFO-YADIRA, BRODY DO Unavailable Unavailable ADOLFO-YADIRA, BRODY DO Unavailable Unavailable ADOLFO-YADIRA, BRODY DO Unavailable Unavailable ADOLFO-YADIRA, BRODY DO Unavailable Unavailable ADOLFO-YADIRA, BRODY DO Unavailable Unavailable ADOLFO-YADIRA, BRODY DO Unavailable Unavailable ADOLFO-YADIRA, BRODY DO Unavailable Unavailable ADOLFO-YADIRA, BRODY DO Unavailable Unavailable ADOLFO-YADIRA, BRODY DO Unavailable Unavailable ADOLFO-YADIRA, BRODY DO Unavailable Unavailable ADOLFO-YADIRA, BRODY DO Unavailable Unavailable ADOLFO-YADIRA, BRODY DO Unavailable Unavailable ADOLFO-YADIRA, BRODY DO Unavailable Unavailable ADOLFO-YADIRA, BRODY DO Unavailable Unavailable ADOLFO-YADIRA, BRODY DO Unavailable Unavailable ADOLFO-YADIRA, BRODY DO Unavailable Unavailable ADOLFO-YADIRA, BRODY DO Unavailable Unavailable ADOLFO-YADIRA, BRODY DO Unavailable Unavailable ADOLFO-YADIRA, BRODY DO Unavailable Unavailable ADOLFO-YADIRA, BRODY DO Unavailable Unavailable ADOLFO-YADIRA, BRODY DO Unavailable Unavailable ADOLFO-YADIRA, BRODY DO Unavailable Unavailable ADOLFO-YADIRA, BRODY DO Unavailable Unavailable ADOLFO-YADIRA, BRODY DO Unavailable Unavailable ADOLFO-YADIAR, BRODY DO Unavailable Unavailable ADOLFO-YADIRA, BRODY DO Unavailable Unavailable ADOLFO-YADIRA, BRODY DO Unavailable Unavailable ADOLFO-YADIRA, BRODY DO Unavailable Unavailable ADOLFO-YADIRA, BRODY DO Unavailable Unavailable ADOLFO-YADIRA, BRODY DO Unavailable Unavailable ADOLFO-YADIRA, BRODY DO Unavailable Unavailable ADOLFO-YADIRA, BRODY DO Unavailable Unavailable ADOLFO-YADIRA, BRODY DO Unavailable Unavailable ADOLFO-YADIRA, BRODY DO Unavailable Unavailable ADOLFO-YADIRA, BRODY DO Unavailable Unavailable ADOLFO-YADIRA, BRODY DO Unavailable Unavailable ADOLFO-YADIRA, BRODY DO Unavailable Unavailable ADOLFO-YADIRA, BRODY DO Unavailable Unavailable ADOLFO-YADIRA, BRODY DO Unavailable Unavailable ADOLFO-YADIRA, BRODY DO Unavailable Unavailable ADOLFO-YADIRA, BRODY DO Unavailable Unavailable ADOLFO-YADIRA, BRODY DO Unavailable Unavailable ADOLFO-YADIRA, BRODY DO Unavailable Unavailable ADOLFO-YADIRA, BRODY DO Unavailable Unavailable ADOLFO-YADIRA, BRODY DO Unavailable Unavailable ADOLFO-YADIRA, BRODY DO Unavailable Unavailable ADOLFO-YADIRA, BRODY DO Unavailable Unavailable Re-disclosure Warning The records that you are about to access may contain information from federally-assisted alcohol or drug abuse programs. If such information is present, then the following federally mandated warning applies: This information has been disclosed to you from records protected by federal confidentiality rules (42 CFR part 2). The federal rules prohibit you from making any further disclosure of this information unless further disclosure is expressly permitted by the written consent of the person to whom it pertains or as otherwise permitted by 42 CFR part 2. A general authorization for the release of medical or other information is NOT sufficient for this purpose. The Federal rules restrict any use of the information to criminally investigate or prosecute any alcohol or drug abuse patient.The records that you are about to access may contain highly sensitive health information, the redisclosure of which is protected by Article 27-F of the [facility] Public Health law. If you continue you may have access to information: Regarding HIV / AIDS; Provided by facilities licensed or operated by the [facility] Office of Mental Health; or Provided by the [facility] Office for People With Developmental Disabilities. If such information is present, then the following [facility] mandated warning applies: This information has been disclosed to you from confidential records which are protected by state law. State law prohibits you from making any further disclosure of this information without the specific written consent of the person to whom it pertains, or as otherwise permitted by law. Any unauthorized further disclosure in violation of state law may result in a fine or shelter sentence or both. A general authorization for the release of medical or other information is NOT sufficient authorization for further disc losure. Family History Family Member Name Family Member Gender Family Member Status Date o f Status Description Data Source(s) Unknown Female Problem MEDENT ([facility]) Unknown Unknown Problem MEDENT ([facility]) Encounters Encounter Providers Location Date Indications Data Source(s ) Outpatient Attender: Grisel Gibson/Mickey/Rosalio/Odilia 01/10/2021 02:00:00 PM EDT MEDENT ([facility]) Outpatient Referrer: BRODY BAKER_[id number] 10/26/2020 05:31:32 PM EDT [facility] [place] [address] [facility] [address] 09/26/2020 12:00:00 AM EDT eCW1 ([facility]) [place] [address] [address] [address] 09/04/2020 12:00:00 AM EDT eCW1 ([facility]) [place] [address] [address] 07/25/2020 12:00:00 AM EDT eCW1 ([facility]) Unknown [address] [address] 07/23/2020 12:00:00 AM EDT eCW1 ([facility]) Office Visit, Est Pt., Level [address] FC [address] [place] [address] 01/05/2020 12:00:00 AM EDT eCW1 ([facility]) Medications Medication Brand Name Start Date Product Form Dose Route Admi nistrative Instructions Pharmacy Instructions Status Indications Reaction Description Data Source(s) INHALER, ASSIST DEVICES 01/10/2021 12:00:00 AM EDT spacer 1 USE WITH INHALER NEEDED USE WITH INHALER NEEDED SOLD: 01/11/2021 [facility] Aerochamber Plus Librado-Vu 01/10/2021 12:00:00 AM EDT active MEDENT ([facility], ) 60 ACTUAT Albuterol 0.09 MG/ACTUAT Metered Dose Inhaler Albu terol Sulfate HFA 01/10/2021 12:00:00 AM EDT RESPIRATORY active MEDENT ([facility], ) 90 mcg/actuation 01/10/2021 12:00:00 AM EDT HFA aerosol inha ler 8 INHALE TWO PUFFS BY MOUTH FOUR TIMES A DAY NEEDED INHALE TWO PUFFS BY MOUTH FOUR TIMES A DAY NEEDED SOLD: 01/11/2021 [facility] g[facility] 0.12 % 01/01/2021 12:00:00 AM EDT mouthwash [address] [place] IN THE MOUTH ONCE PER DAY AFTER BRUSHING TEETH, SWISH IN MOUTH FOR 30 [address] THEN SPIT OUT PLACE 15 MLS IN THE MOUTH ONCE PER DAY AFTER BRUSHING TEETH, SWISH IN MOUTH FOR 30 SECONDS THEN SPIT OUT SOLD: 01/01/2021 [facility] Insurance Providers Payer name Policy type / Coverage type Policy ID Covered republican ID Covered republican's relationship to rudd Policy Rudd Plan Information BCBS EMPIRE [place] DIV [id number] SP [id number] BCBS EMPIRE [place] DIV [id number] SP [id number] Medicare Primary [id number] [id number] [place] Plan Secondary [id number] BCBS EMPIRE [place] DIV [id number] MEDICARE [id number] SP [id number] [place] 200/700 [id number] HU [id number] [place] [id number] HU [id number] [facility] [id number] SP [id number] [place] [id number] HU [id number] [facility] [id number] SP [id number] BCBS EMPIRE GIL[place] DIV [id number] SP [id number] MEDICARE C [id number] S [id number] EMPIRE (STATE EMP) O [id number] S [id number] MEDICARE C [id number] S [id number] D [place] Plan Medigap Part B [id number] Self [id number] Medicare Upstate Medicare Primary [id number] Self [id number] [place] Plan Medigap Part B [id number] Self [id number] Medicare Up[place] Medicare Primary [id number] Self [id number] SELF PAY ONLY 0 SP [id number] [place] Plan Medigap Part B [id number] Self Medicare [place] Medicare Primary [id number] Self [facility] [place] Med[place] Part B [id number] Self Medicare Natl Gov't Servi Medicare Primary [id number] Self [facility] UNAVAILABLE UNAVAILABLE P UNAVAILABLE UNAVAILA BLE [facility] [id number] [facility] 200/700 [id number] [facility] GILMA DIV [id number] SP [id number] [facility] [id number] 18 [id number] MEDICARE [id number] SP [id number] [id number] [facility] [id number] SP [id number] BC EMPIR GILMA DIV [id number] SP [id number] Problems, Conditions, and Diagnoses Code Display Name Description Problem Type Effective Dates Data Source(s) R06.02 Dyspnea Dyspnea Problem 01/10/2021 12:00:00 AM ED T MEDENT ([facility], ) R06.2 Wheezing Wheezing Problem 01/10/2021 12:00:00 AM ED T MEDENT ([facility], ) R94.2 Pulmonary function studies abnormal Pulmonary fu nction studies abnormal Problem 01/10/2021 12:00:00 AM EDT MEDENT ([facility] steve ) F17.210 [id number] Cigarette nicotine dependence without com plication Problem 01/05/2020 12:00:00 AM EDT eCW1 ([facility]) Surgeries/Procedures Procedure Description Date Indications Data Source(s) Bronchospasm Evaluation 01/25/2021 12:00:00 AM EDT MEDENT ([facility], ) Plethysmography Determination Lung Volumes & Per Airway Resi st 01/25/2021 12:00:00 AM EDT MEDENT ([facility], ) DIFFUSING CAPACITY 01/25/2021 12:00:00 AM EDT MEDENT ([facility], ) Spirometry 01/10/2021 12:00:00 AM EDT M EDENT ([facility], ) DEMO&/EVAL OF PT UTILIZ AERSL GEN/NEB/INHLR/IPPB 01/10 12:00:00 AM EDT MEDENT ([facility]) OFFICE OUTPATIENT NEW 45 MINUTES 01/10/2021 12:00:00 A M EDT MEDENT ([facility]) Results ID Date Data Source [id number] 01/10/2021 01:50:00 PM EDT MEDENT ([facility]) Name Value Range Interpretation Code Description Data Susy rce(s) Supporting Document(s) PDFReport Laboratory test result MEDENT ([facility], ) FVC-Pred 2.93 L MEDENT ([facility]) FVC-Pre 1.58 L MEDENT ([facility]) FVC-%Pred-Pre 54 L MEDENT ([facility]) FVC-LLN 2.23 L MEDENT ([facility]) Fev1-Pre 1.14 L MEDENT ([facility]) Fev1-Pred 2.21 L MEDENT ([facility]) Fev1-%Pred-Pre 51 L MEDENT ([facility]) Fev1-LLN 1.62 L MEDENT ([facility]) Fev6-Pred 2.79 L MEDENT ([facility]) Fev6-Pre 1.58 L MEDENT ([facility]) Fev6-%Pred-Pre 56 L MEDENT ([facility]) Fev6-LLN 2.11 L MEDENT ([facility]) Fzd6grb-Nbmq 76 % MEDENT ([facility] [place] [facility]) Ysu0ckr-Upl 72 % MEDENT ([facility]) Rbz0sfb-%Pred-Pre 94 % MEDENT ([facility]) Wcz0bgz-APZ 66 % MEDENT ([facility]) Bab5ppq-Oln 100 % MEDENT ([facility]) Apz7dnp-Kgje 95 % MEDENT ([facility]) FEFMax-Pred 5.49 L/E/sec MEDENT ([facility]) Yve9mdk-%Pred-Pre 104 % MEDENT ([facility]) FEFMax-%Pred-Pre 37 L/E/sec MEDENT ([facility]) FEFMax-Pre 2.04 L/E/sec MEDENT ([facility]) Ilh5814-Eotj 1.80 L/E/sec MEDENT ([facility]) FEFMax-LLN 3.78 L/E/sec MEDENT ([facility]) Jjs8218-Nfs 0.84 L/E/sec MEDENT ([facility]) Vri8585-%Pred-Pre 46 L/E/sec MEDENT ([facility]) Hpe9560-RFL 0.56 L/E/sec MEDENT ([facility]) ExpTime-Pre 6.19 sec MEDENT ([facility]) Usn8snp8-Jtoh 79 % MEDENT ([facility]) Ctz0yrq7-Shz 72 % MEDENT ([facility]) Bvd9dji7-%Pred-Pre 90 % MEDENT ([facility]) Ozf6hnv6-LBR 70 % MEDENT ([facility]) Procedure Social History Code Duration Value Status Description Data Source(s ) Smoking 09/26/2020 12:00:00 AM EDT Current Smoker completed Curre nt Smoker eCW1 ([facility]) Smoking 07/25/2020 12:00:00 AM EDT Current Smoker completed Curre nt Smoker eCW1 ([facility]) Smoking 07/25/2020 12:00:00 AM EDT Current Smoker completed Curre nt Smoker eCW1 ([facility]) Smoking 07/25/2020 12:00:00 AM EDT Current Smoker completed Curre nt Smoker eCW1 ([facility]) Smoking 01/05/2020 12:00:00 AM EDT Current Smoker completed Curre nt Smoker eCW1 ([facility]) Vital Signs ID Date Data Source UNK Name Value Range Interpretation Code Description Data Source(s) Systolic blood pressure 140 mm[Hg] 140 mm[Hg] [facility] Oxygen saturation in Arterial blood by Pulse oximetry 98 % 98 % [facility] ([facility]) Respiratory rate 18 /min 18 /min [facility] ( [facility]) Body height 64 [in_i] 64 [in_i] [facility] ([facility]) 5'4" Body weight 189.12 [lb_av] 189.12 [lb_av] MEDEN T ([facility]) Body mass index (BMI) [Ratio] 32.5 kg/m2 32.5 k g/m2 [facility] ([facility]) [place] body weight 120 [lb_av] 120 [lb_av] MEDEN T ([facility]) Body weight 85.787 kg 85.787 kg [facility] ([facility]) Body surface area Derived from formula 1.91 m2 1.91 m2 [facility] ([facility]) Diastolic blood pressure 76 mm[Hg] 76 mm[Hg] [facility] ([facility]) Heart rate 80 /min 80 /min [facility] ([facility]) Body weight 197.8 [lb_av] 197.8 [lb_av] eCW1 ([facility]) Body height 64 [in_i] 64 [in_i] eCW1 ([facility]) Body mass index (BMI) [Ratio] 33.95 kg/m2 33.95 kg/m2 eCW1 ([facility]) Heart rate 104 /min 104 /min eCW1 ([facility]) Respiratory rate 18 /min 18 /min eCW1 ([facility]) Body temperature 97.8 [degF] 97.8 [degF] eCW1 ( [facility]) Systolic blood pressure 138 mm[Hg] 138 mm[Hg] e CW1 ([facility]) Diastolic blood pressure 72 mm[Hg] 72 mm[Hg] eCW1 ([facility]) Body weight 197 [lb_av] 197 [lb_av] eCW1 ([facility]) Body height 64 [in_i] 64 [in_i] eCW1 ([facility]) Body mass index (BMI) [Ratio] 33.81 kg/m2 33.81 kg/m2 eCW1 ([facility]) Heart rate 114 /min 114 /min eCW1 ([facility]) Respiratory rate 18 /min 18 /min eCW1 ([facility]) Body temperature 97.8 [degF] 97.8 [degF] eCW1 ( [facility]) Systolic blood pressure 132 mm[Hg] 132 mm[Hg] e CW1 ([facility]) Diastolic blood pressure 64 mm[Hg] 64 mm[Hg] eCW1 ([facility]) Body weight 199 [lb_av] 199 [lb_av] eCW1 ([facility]) Body height 64 [in_i] 64 [in_i] eCW1 ([facility]) Body mass index (BMI) [Ratio] 34.15 kg/m2 34.15 kg/m2 eCW1 ([facility]) Heart rate 105 /min 105 /min eCW1 ([facility]) Respiratory rate 18 /min 18 /min eCW1 ([facility]) Body temperature 98.5 [degF] 98.5 [degF] eCW1 ( [facility]) Systolic blood pressure 128 mm[Hg] 128 mm[Hg] e CW1 ([facility]) Diastolic blood pressure 78 mm[Hg] 78 mm[Hg] eCW1 ([facility])
--- OUTSIDE RECORDS SUMMARY | 2021-02-14 13:54 | CCD | Continuity of Care Document ---
Author Rose Marie Arias Organization Unknown Address [address] [place] [address] Phone [phone] Care Team Providers Care Supervisor [employer] Name Role Phone Magaly Regalado D.O. AUTM [...] lb BMI (Body Mass Index) 32.5 kg/m2 [place] Body Weight 120 lb Weight 85.787 kg [...] L Fev6-%Pred-Pre 56 L Fev6-LLN 2.11 L Kqm0llb-Aczg 76 % Frk8gmm-Ayj 72 % Lxl3nqn-%Pred-Pre 94 % Bls2zlo-DRQ 66 % Ssh8nxb-Lftx 95 % Iuc5hym-Gbc 100 % Uxl2mmu-%Pred-Pre 104 % FEFMax-Pred 5.49 L/E/sec FEFMax-Pre 2.04 L/E/sec FEFMax-%Pred-Pre 37 L/E/sec FEFMax-LLN 3.78 L/E/sec Har0331-Oerv 1.80 L/E/sec Wxk6688-Dyu 0.84 L/E/sec Bcd1436-%Pred-Pre 46 L/E/sec Xai4500-LSN 0.56 L/E/sec ExpTime-Pre 6.19 sec Ytj7pyt2-Nxvm 79 % Cna2ihg7-Pky 72 % Myz7hix4-%Pred-Pre 90 % Yvz2bfg1-LLK 70 % Procedures Description No Information Available Medical Devices Description No Information Available Encounters Description No Information Available Assessments Date Code Description Provider 01/10/2021 R06.02 Shortness of breath RAMIRO Buck 01/10/2021 F17.218 Nicotine dependence, cigarettes, with other nicotine-induced disorders RAMIRO Buck 01/10/2021 R94.2 Abnormal results of pulmonary fu nction studies RAMIRO Buck 01/10/2021 R05.9 Cough, unspecified [facility] [employer] [employer] 01/10/2021 R06.2 Wheezing RAMIRO Buck Plan of Treatment Future Appointment(s):* 02/05/2021 9:30 am - RAMIRO Buck at [facility] Pulmonary/Thoracic * 01/25/2021 3:00 pm - Pulmonary Lab at [facility] Pulmonary/Thoracic 01/10/2021 - RAMIRO Buck* R06.02 Shortness [...] Date Grisel Marcos A.N.P. DOE Scheduled 01/08/2021 [facility] Medical Practice Pulmonary [address] [place], [place] [address] [phone]
--- OUTSIDE RECORDS SUMMARY | 2021-02-14 13:54 | CCD | Continuity of Care Document ---
Author Rose Marie Arias Organization Unknown Address [address] [place] [address] Phone [phone] Care Team Providers Care Cleaning Maid Name Role Phone Magaly Regalado D.O. AUTM [...] lb BMI (Body Mass Index) 32.5 kg/m2 [place] Body Weight 120 lb Weight 85.787 kg [...] L Fev6-%Pred-Pre 56 L Fev6-LLN 2.11 L Lbc0rpf-Yrsy 76 % Piw2gby-Mqb 72 % Pgw1ljh-%Pred-Pre 94 % Pes6blp-LSM 66 % Fxj5wmn-Qokd 95 % Yjo4ths-Jxl 100 % Gle5nnu-%Pred-Pre 104 % FEFMax-Pred 5.49 L/E/sec FEFMax-Pre 2.04 L/E/sec FEFMax-%Pred-Pre 37 L/E/sec FEFMax-LLN 3.78 L/E/sec Sxx8920-Uzlm 1.80 L/E/sec Byy8416-Lwx 0.84 L/E/sec Zmx5767-%Pred-Pre 46 L/E/sec Eqf5431-FZT 0.56 L/E/sec ExpTime-Pre 6.19 sec Igs3jkd5-Rmtp 79 % Caj9hdf9-Qzk 72 % Cil1kaj5-%Pred-Pre 90 % Mck4ptx1-ODL 70 % Procedures Description No Information Available Medical Devices Description No Information Available Encounters Description No Information Available Assessments Date Code Description Provider 01/10/2021 R06.02 Shortness of breath RAMIRO Buck 01/10/2021 F17.218 Nicotine dependence, cigarettes, with other nicotine-induced disorders RAMIRO Buck 01/10/2021 R94.2 Abnormal results of pulmonary fu nction studies RAMIRO Buck 01/10/2021 R05.9 Cough, unspecified Pretty Buck BECK OPERATOR 01/10/2021 R06.2 Wheezing RAMIRO Buck Plan of Treatment Future Appointment(s):* 02/05/2021 9:30 am - RAMIRO Buck at [facility] Pulmonary/Thoracic * 01/25/2021 3:00 pm - Pulmonary Lab at [facility] Pulmonary/Thoracic 01/10/2021 - RAMIRO Buck* [...] Date Grisel Marcos A.N.P. DOE Scheduled 01/08/2021 [facility] Medical Practice Pulmonary [address] [place], [place] [address] [phone]
--- OUTSIDE RECORDS SUMMARY | 2021-02-14 13:54 | CCD | Continuity of Care Document ---
Author Author Pulmonary [facility], [facility] Organization Unknown Address [address] [place] [address] Phone [phone] Care Team Providers Care Ditch Rider Name Role Phone Magaly Regalado D.O. AUTM [phone] AUTM Unavailable Problems Active Problems Provider Date [...] lb BMI (Body Mass Index) 32.5 kg/m2 [place] Body Weight 120 lb Weight 85.787 kg BSA (Body Surface Area) 1.91 m2 Results Test Acquired Date Facility Test Result H/L Range Note FVL/Clarence 01/10/2021 [facility] PDFReport SEE IMAGE FVC-Pred 2.93 L FVC-Pre 1.58 L FVC-%Pred-Pre 54 L FVC-LLN 2.23 L Fev1-Pred 2.21 L Fev1-Pre 1.14 L Fev1-%Pred-Pre 51 L Fev1-LLN 1.62 L Fev6-Pred 2.79 L Fev6-Pre 1.58 L Fev6-%Pred-Pre 56 L Fev6-LLN 2.11 L Ckp4apo-Nvdi 76 % Fem0zuk-Hrg 72 % Pyg6usb-%Pred-Pre 94 % Edb7xbg-DSV 66 % Rqp8bmg-Ichz 95 % Glh1vpo-Ppc 100 % Bae3lbn-%Pred-Pre 104 % FEFMax-Pred 5.49 L/E/sec FEFMax-Pre 2.04 L/E/sec FEFMax-%Pred-Pre 37 L/E/sec FEFMax-LLN 3.78 L/E/sec Ese7815-Xdfk 1.80 L/E/sec Zvx6762-Zjw 0.84 L/E/sec Gsz0682-%Pred-Pre 46 L/E/sec Zzf0314-MPX 0.56 L/E/sec ExpTime-Pre 6.19 sec Fac1xbc0-Gnqs 79 % Gvr1yfm6-Ect 72 % Sml0pir4-%Pred-Pre 90 % Jlc1wyo4-CGS 70 % Procedures Date Code Description Status 01/10/2021 86508 Office/Outpatient New Moderate M DM 45-59 Minutes Completed 01/10/2021 30267 Inhaler Teaching Completed 01/10/2021 97149 Spirometry Completed Medical Devices Description No Information [...] Appt Grisel Carlos A.N.P. SILVEIRA Scheduled 01/08/2021 [facility] Pulmonary [address] [place], [place] [address] [phone]
--- OUTSIDE RECORDS SUMMARY | 2021-02-14 13:54 | CCD | Continuity of Care Document ---
Author Rose Marie Arias Organization Unknown Address [address] [place] [address] Phone [phone] Care Team Providers Care Appliance Technician Name Role Phone Magaly Regalado D.O. AUTM [...] lb BMI (Body Mass Index) 32.5 kg/m2 [place] Body Weight 120 lb Weight 85.787 kg [...] L Fev6-%Pred-Pre 56 L Fev6-LLN 2.11 L Ceb1vux-Qhqw 76 % Hnt7qhx-Ind 72 % Zop8bvt-%Pred-Pre 94 % Gtn0vzm-RST 66 % Ttx5yjz-Wmvp 95 % Ugj6zgv-Xzz 100 % Gin4lrf-%Pred-Pre 104 % FEFMax-Pred 5.49 L/E/sec FEFMax-Pre 2.04 L/E/sec FEFMax-%Pred-Pre 37 L/E/sec FEFMax-LLN 3.78 L/E/sec Dpk4773-Jkgu 1.80 L/E/sec Mel4546-Aan 0.84 L/E/sec Pvh5513-%Pred-Pre 46 L/E/sec Woa1005-KVM 0.56 L/E/sec ExpTime-Pre 6.19 sec Llc9gqq8-Ejpj 79 % Boh6qxg2-Poz 72 % Cdw5tvw6-%Pred-Pre 90 % Ogw6ejv4-KMK 70 % Procedures Description No Information Available Medical Devices Description No Information Available Encounters Description No Information Available Assessments Date Code Description Provider 01/10/2021 R06.02 Shortness of breath RAMIRO Buck 01/10/2021 F17.218 Nicotine dependence, cigarettes, with other nicotine-induced disorders RAMIRO Buck 01/10/2021 R94.2 Abnormal results of pulmonary fu nction studies RAMIRO Buck 01/10/2021 R05.9 Cough, unspecified [place] [facility] CUST[facility] CARE SPECIALIST 01/10/2021 R06.2 Wheezing RAMIRO Buck Plan of Treatment Future Appointment(s):* 02/05/2021 9:30 am - RAMIRO Buck at [facility]monary[facility]Th[facility] * 01/25/2021 3:00 pm - Pulmonary Lab at [facility] Pulmonary/Thoracic 01/10/2021 - RAMIRO Buck* R06.02 Shortness [...] Date Grisel Marcos A.N.P. DOE Scheduled 01/08/2021 [facility] Pulmonary [address] [place], [place] [address] [phone]
--- NOTE | 2021-02-14 14:44 | REP ---
INDICATION: Abdominal Pain COMPARISON: None. TECHNIQUE: Upright view of the chest with supine and upright views of the abdomen and pelvis. FINDINGS: Frontal upright view of the chest demonstrates no acute cardiopulmonary process or free air below the diaphragm to suspect pneumoperitoneum. Supine and upright views of the abdomen and pelvis demonstrate nonspecific bowel gas pattern without obstruction or perforation. No organomegaly. No abnormal calcifications. Skeletal structures normal for age. IMPRESSION: Nonspecific bowel gas pattern. <Electronically signed by Amrit Porter > 02/14/21 [id number]
--- NOTE | 2021-02-14 16:34 | REP ---
INDICATION: RLE pain/swelling, r/o DVT COMPARISON: None. TECHNIQUE: Jhaveri scale and color Doppler evaluation using linear high frequency transducer. FINDINGS: Ultrasound examination of the right lower extremity deep venous structures from the common femoral vein through the calf/ankle to include the peroneal, and tibial veins demonstrates normal compressibility flow and wave patterns in response to respiration and augmentation. There is no evidence for deep venous thrombosis. Contralateral CFV is patent and normal. IMPRESSION: No evidence for deep venous thrombosis. <Electronically signed by Amrit Porter > 02/14/21 1181
--- OUTSIDE RECORDS SUMMARY | 2021-02-14 22:02 | CCD ---
Author Author [facility] Organization [facility] Address Unknown Phone Unavailable Care Team Providers Care Fitting Room Associate Name Role Phone Hemant, L Grisel POT WASHER Unavailable Unavailable Hemant, L Grisel POT WASHER Unavailable Unavailable Hemant, L Grisel POT WASHER Unavailable Unavailable Hemant, L Grisel POT WASHER Unavailable Unavailable Hemant, L Grisel POT WASHER Unavailable Unavailable Hemant, L Grisel POT WASHER Unavailable Unavailable Hemant, L Grisel POT WASHER Unavailable Unavailable Hemant, L Grisel POT WASHER Unavailable Unavailable Hemant, L Grisel POT WASHER Unavailable Unavailable Hemant, L Grisel POT WASHER Unavailable Unavailable Hemant, L Grisel POT WASHER Unavailable Unavailable Hemant, L Grisel POT WASHER Unavailable Unavailable Hemant, L Grisel POT WASHER Unavailable Unavailable Hemant, L Grisel POT WASHER Unavailable Unavailable Hemant, L Grisel POT WASHER Unavailable Unavailable Hemant, L Grisel POT WASHER Unavailable Unavailable Hemant, L Grisel POT WASHER Unavailable Unavailable Hemant, L Grisel POT WASHER Unavailable Unavailable Hemant, L Grisel POT WASHER Unavailable Unavailable Hemant, L Grisel POT WASHER Unavailable Unavailable Hemant, L Grisel POT WASHER Unavailable Unavailable Hemant, L Grisel POT WASHER Unavailable Unavailable Hemant, L Grisel POT WASHER Unavailable Unavailable Hemant, L Grisel POT WASHER Unavailable Unavailable Hemant, L Grisel POT WASHER Unavailable Unavailable ADOLFO-YADIRA, BROYD DO Unavailable Unavailable ADOLFO-YADIRA, BRODY DO Unavailable [...] is protected by Article 27-F of the [facility] Public Health law. If you continue you may have access to information: Regarding HIV / AIDS; Provided by facilities licensed or operated by the [facility] Office of Mental Health; or Provided by the [facility] Office for People With Developmental Disabilities. If such information is present, then the following [facility] mandated warning applies: This information has [...] law may result in a fine or penitentiary sentence or both. A general authorization for the release of medical or other information is NOT sufficient authorization for further disc losure. Family History Family Member Name Family Member Gender Family Member Status Date o f Status Description Data Source(s) Unknown Female Problem MEDENT ([facility]) Unknown Unknown Problem MEDENT ([facility]) Encounters Encounter Providers Location Date Indications Data Source(s ) Outpatient Attender: Grisel Gibson/Mickey/Rosalio/Odilia 01/10/2021 02:00:00 PM EDT MED[facility] ([facility] Outpatient Referrer: BRODY BAKER_[id number] 10/26/2020 05:31:32 PM EDT [facility] [address] [facility] [address] 09/26/2020 12:00:00 AM EDT eCW1 ([facility]) Unknown [address] [address] 09/04/2020 12:00:00 AM EDT eCW1 ([facility]) Out[place] [address] [address] 07/25/2020 12:00:00 AM EDT eCW1 ([facility]) Unknown [address] [address] 07/23/2020 12:00:00 AM EDT eCW1 ([facility]) Office Visit, Est Pt., Level 2 FC [address] [place] [address] 01/05/2020 12:00:00 AM EDT eCW1 ([facility]) Medications Medication Brand Name Start Date Product Form Dose Route Admi nistrative Instructions Pharmacy Instructions Status Indications Reaction Description Data Source(s) INHALER, ASSIST DEVICES 01/10/2021 12:00:00 AM EDT spacer 1 USE WITH INHALER NEEDED USE WITH INHALER NEEDED SOLD: 01/11/2021 [facility] Aerochamber Plus Librado-Vu 01/10/2021 12:00:00 AM EDT active MEDENT ([facility], ) 60 ACTUAT Albuterol 0.09 MG/ACTUAT Metered Dose Inhaler Albu terol Sulfate HFA 01/10/2021 12:00:00 AM EDT RESPIRATORY active MEDENT ([facility], ) 90 mcg/actuation 01/10/2021 12:00:00 AM EDT [...] type / Coverage type Policy ID Covered green party ID Covered green party's relationship to rudd Policy Rudd Plan Information BCBS E[place]IRE [place] [id number] SP [id number] BCBS E[employer]IRE [place] [id number] SP [id number] Medicare Primary [id number] N79 [place] Plan Secondary [id number] BCBS E[place]IRE [place] [id number] MEDICARE [id number] SP [id number] D [place] 200/700 [id number] HU [id number] [employer] [place] [id number] HU 1 [id number] [facility] [id number] SP [id number] [place] [id number] HU 1 [id number] [facility] [id number] SP [id number] BCBS E[place]IRE [place] DIV [id number] SP [id number] MEDICARE C [id number] S [id number] [id number] EMPIRE (STATE EMP) O [id number] S [id number] MEDICARE C [id number] S [id number] D [place] Plan Medigap Part B [id number] Self [id number] Medicare Up[place] Medicare Primary [id number] Self [id number] [place] Plan Medigap Part B [id number] Self [id number] Medicare [place] Medicare Primary [id number] Self [id number] SELF PAY ONLY 0 SP 0 [place] Plan Medigap Part [id number] Self Medicare [place] Medicare Primary [id number] Self [facility] [place] Medimulberry Part B [id number] Self Medicare Natl Gov't Servi Medicare Primary [id number] Self BCBS EMPIR [place]ILMA DIV UNAVAILABLE UNAVAILABLE P UNAVAILABLE UNAVAILA BLE [facility] [id number] [facility] 200/700 [id number] [id number] [place] [id number] SP [id number] [facility] [id number] 18 [id number] MEDICARE [id number] SP [id number] [facility] [id number] SP [id number] BCBS [place] DIV [id number] SP [id number] Problems, Conditions, and Diagnoses Code Display Name Description Problem Type Effective Dates Data Source(s) R06.02 Dyspnea Dyspnea Problem 01/10/2021 12:00:00 AM ED T MEDENT ([facility], ) R06.2 Wheezing Wheezing Problem 01/10/2021 12:00:00 AM ED T MEDENT ([facility], ) R94.2 Pulmonary function studies abnormal Pulmonary fu nction studies abnormal Problem 01/10/2021 12:00:00 AM EDT MEDENT ([facility] steve ) F17.210 [id number] Cigarette nicotine dependence without com plication Problem 01/05/2020 12:00:00 AM EDT eCW1 ([facility]) Surgeries/Procedures Procedure Description Date Indications Data Source(s) Bronchospasm Evaluation 01/25/2021 12:00:00 AM EDT MEDENT ([facility], ) Plethysmography Determination Lung Volumes & Per Airway Resi st 01/25/2021 12:00:00 AM EDT MEDENT ([facility], ) DIFFUSING CAPACITY 01/25/2021 12:00:00 AM EDT MEDENT ([facility], ) Spirometry 01/10/2021 12:00:00 AM EDT M EDENT ([facility], ) DEMO&/EVAL OF PT UTILIZ AERSL GEN/NEB/INHLR/IPPB 01/10 12:00:00 AM EDT MEDENT ([facility]) OFFICE OUTPATIENT NEW 45 MINUTES 01/10/2021 12:00:00 A M EDT MEDENT ([facility]) Results ID Date Data Source [id number] 01/10/2021 01:50:00 PM EDT MEDENT ([facility]) Name Value Range Interpretation Code Description Data Susy rce(s) Supporting Document(s) PDFReport Laboratory test result MEDENT ([facility]) FVC-Pred 2.93 L MEDENT ([facility]) FVC-Pre 1.58 L MEDENT ([facility]) FVC-%Pred-Pre 54 L MEDENT ([facility]) FVC-LLN 2.23 L MEDENT ([facility]) Fev1-Pre 1.14 L MEDENT ([facility]) Fev1-Pred 2.21 L MEDENT ([facility]) Fev1-%Pred-Pre 51 L MEDENT ([facility]) Fev1-LLN 1.62 L MEDENT ([facility]) Fev6-Pred 2.79 L MEDENT ([facility]) Fev6-Pre 1.58 L MEDENT ([facility]) Fev6-%Pred-Pre 56 L MEDENT ([facility]) Fev6-LLN 2.11 L MEDENT ([facility]) Pfi6ozb-Lddz 76 % MEDENT ([facility]) Eek3lvh-Hjq 72 % MED[facility] ([facility]) Okt3xsx-%Pred-Pre 94 % MEDENT ([facility]) Qte8rzz-UIC 66 % MEDENT ([facility]) Jqf7edm-Mvv 100 % MEDENT ([facility]) Ezq6smt-Qvjz 95 % MED[facility] ([facility]) FEFMax-Pred 5.49 L/E/sec MEDENT ([facility], ) Lvm5svn-%Pred-Pre 104 % MEDENT ([facility]) FEFMax-%Pred-Pre 37 L/E/sec MEDENT ([facility]) FEFMax-Pre 2.04 L/E/sec MEDENT ([facility]) Bor7573-Xzfd 1.80 L/E/sec MEDENT ([facility]) FEFMax-LLN 3.78 L/E/sec MEDENT ([facility]) Nep9717-Dec 0.84 L/E/sec MEDENT ([facility]) Tjt9134-%Pred-Pre 46 L/E/sec MEDENT ([facility]) Bxj4744-UPY 0.56 L/E/sec MEDENT ([facility]) ExpTime-Pre 6.19 sec MEDENT ([facility]) Nto2qau5-Xzpf 79 % MEDENT ([facility]) Hyk7ttr2-Goh 72 % MED[facility] ([facility]) Ykq1wga3-%Pred-Pre 90 % MEDENT ([facility]) Wxi5aug3-DCA 70 % MEDENT ([facility]) Procedure Social History Code Duration Value Status Description Data Source(s ) Smoking 09/26/2020 12:00:00 AM EDT Current Smoker completed Curre nt Smoker eCW1 ([facility]) Smoking 07/25/2020 12:00:00 AM EDT Current Smoker completed Curre nt Smoker eCW1 ([facility]) Smoking 07/25/2020 12:00:00 AM EDT Current Smoker completed Curre nt Smoker eCW1 ([facility]) Smoking 07/25/2020 12:00:00 AM EDT Current Smoker completed Curre nt Smoker eCW1 ([facility]) Smoking 01/05/2020 12:00:00 AM EDT Current Smoker completed Curre nt Smoker eCW1 ([facility]) Vital Signs ID Date Data Source UNK Name Value Range Interpretation Code Description Data Source(s) Systolic blood pressure 140 mm[Hg] 140 mm[Hg] [facility] Diastolic blood pressure 76 mm[Hg] 76 mm[Hg] [facility] ([facility]) Oxygen saturation in Arterial blood by Pulse oximetry 98 % 98 % [facility] ([facility]) Respiratory rate 18 /min 18 /min [facility] ( [facility]) Body height 64 [in_i] 64 [in_i] [facility] ([facility]) 5'4" Body weight 189.12 [lb_av] 189.12 [lb_av] MED[facility] T ([facility]) Body mass index (BMI) [Ratio] 32.5 kg/m2 32.5 k g/m2 [facility] ([facility]) [place] body weight 120 [lb_av] 120 [lb_av] MEDEN T ([facility]) Body weight 85.787 kg 85.787 kg [facility] ([facility]) Heart rate 80 /min 80 /min [facility] ([facility]) Body surface area Derived from formula 1.91 m2 1.91 m2 [facility] ([facility]) Body weight 197.8 [lb_av] 197.8 [lb_av] eCW1 ([facility]) Body height 64 [in_i] 64 [in_i] eCW1 ([facility]) Body mass index (BMI) [Ratio] 33.95 kg/m2 33.95 kg/m2 eCW1 ([facility]) Heart rate 104 /min 104 /min eCW1 ([facility]) Respiratory rate 18 /min 18 /min eCW1 ([facility]) Body temperature 97.8 [degF] 97.8 [degF] eCW1 ( [facility]) Systolic blood pressure 138 mm[Hg] 138 mm[Hg] e CW1 ([facility]) Diastolic blood pressure 72 mm[Hg] 72 mm[Hg] eCW1 ([facility]) Body weight 197 [lb_av] 197 [lb_av] eCW1 ([facility]) Body height 64 [in_i] 64 [in_i] eCW1 ([facility]) Body mass index (BMI) [Ratio] 33.81 kg/m2 33.81 kg/m2 eCW1 ([facility]) Heart rate 114 /min 114 /min eCW1 ([facility]) Respiratory rate 18 /min 18 /min eCW1 ([facility]) Body temperature 97.8 [degF] 97.8 [degF] eCW1 ( [facility]) Systolic blood pressure 132 mm[Hg] 132 mm[Hg] e CW1 ([facility]) Diastolic blood pressure 64 mm[Hg] 64 mm[Hg] eCW1 ([facility]) Body weight 199 [lb_av] 199 [lb_av] eCW1 ([facility]) Body height 64 [in_i] 64 [in_i] eCW1 ([facility]) Body mass index (BMI) [Ratio] 34.15 kg/m2 34.15 kg/m2 eCW1 ([facility]) Heart rate 105 /min 105 /min eCW1 ([facility]) Respiratory rate 18 /min 18 /min eCW1 ([facility]) Body temperature 98.5 [degF] 98.5 [degF] eCW1 ( [facility]) Systolic blood pressure 128 mm[Hg] 128 mm[Hg] e CW1 ([facility]) Diastolic blood pressure 78 mm[Hg] 78 mm[Hg] eCW1 ([facility])
[2021-02-14] MEDS ORDERED: KETOROLAC 30 MG/ML 1ML VIAL IV ONE (22:30)
[2021-02-14] MEDS ORDERED: NS 1,000 ML IV ONE (22:30)
[2021-02-14 23:04] LABS: BASO % 0.6 % (0.0-1.0); EOS # 0.1 10^3/uL (0.0-0.5); EOS % 1.5 % (0.0-3.0); HEMATOCRIT 43.4 % (36.0-47.0); HEMOGLOBIN 13.5 g/dl (12.0-15.5); LYMPH # 1.5 10^3/uL (1.5-5.0); LYMPH % 22.9 % (24.0-44.0); MEAN CORPUSCULAR HEMOGLOBIN 30.1 pg (27.0-33.0); MEAN CORPUSCULAR HGB CONC 31.1 g/dl (32.0-36.5); MEAN CORPUSCULAR VOLUME 96.9 fl (80.0-96.0); MONO # 0.7 10^3/uL (0.0-0.8); MONO % 9.7 % (2.0-8.0); NEUTROPHILS # 4.4 10^3/uL (1.5-8.5); PLATELET COUNT, AUTOMATED 284 10^3/uL (150-450); RED BLOOD COUNT 4.48 10^6/uL (4.00-5.40); WHITE BLOOD COUNT 6.7 10^3/uL (4.0-10.0)
[2021-02-14 23:21] VITALS: BP 177/84
[2021-02-14] MEDS ORDERED: ISOVUE-370 76% 100ML VIAL As Ordered ONE (23:21)
[2021-02-14 23:29] LABS: ERYTHROCYTE SEDIMENTATION RATE 35 mm/hr (0-30)
[2021-02-14 23:35] LABS: ALBUMIN 3.8 GM/DL (3.2-5.2); ALT/SGPT 17 U/L (12-78); BILIRUBIN,DIRECT 0.2 MG/DL (0.0-0.2); BILIRUBIN,TOTAL 0.7 MG/DL (0.2-1.0); BLOOD UREA NITROGEN 10 MG/DL (7-18); CARBON DIOXIDE LEVEL 31 MEQ/L (21-32); CHLORIDE LEVEL 106 MEQ/L (98-107); CREATININE FOR GFR 0.71 MG/DL (0.55-1.30); GLOMERULAR FILTRATION RATE > 60.0 (>39); GLUCOSE, FASTING 96 MG/DL (70-100); LIPASE 88 U/L (73-393); POTASSIUM SERUM 4.3 MEQ/L (3.5-5.1); SODIUM LEVEL 142 MEQ/L (136-145); TOTAL PROTEIN 7.1 GM/DL (6.4-8.2)
--- NOTE | 2021-02-15 00:55 | REPVR ---
PROCEDURE INFORMATION: Exam: CT Abdomen And Pelvis With Contrast Exam date and time: 02/14/2021 10:28 PM Age: 70 years old Clinical indication: Pain; Other: Back; Additional info: Lower abd pain TECHNIQUE: Imaging protocol: Computed tomography of the abdomen and pelvis with contrast. Radiation optimization: All CT scans at this facility use at least one of these dose optimization techniques: automated exposure control; mA and/or kV adjustment per patient size (includes targeted exams where dose is matched to clinical indication); or iterative reconstruction. Contrast material: ISO; Contrast volume: 100 ml; Contrast route: INTRAVENOUS (IV); COMPARISON: 1. CR Abdomen,Flat Upright,PA CHEST 2021-02-14 14:23 2. DX HIPS BILAT 2 VIEW W/ AP PELVIS 2016-08-28 09:26 FINDINGS: Diaphragm: Small gastroesophageal sliding type hiatal hernia. Liver: Normal. No mass. Gallbladder and bile ducts: Normal. No calcified stones. No ductal dilation. Pancreas: Normal. No ductal dilation. Spleen: Normal. No splenomegaly. Adrenal glands: Normal. No mass. Kidneys and ureters: Normal. No hydronephrosis. Stomach and bowel: Cecum is along the midline ventral to the uterus. Excess stool in the colon. Distal esophageal thickening, asymmetric gastroesophageal junction left-sided thickening and enhancement, question esophagitis or mucosal lesion, recommend upper GI and or gastroenterology consultation. Additionally, there is some irregularity of the duodenum proximally suggesting peptic ulcer disease, correlate. Excess stool in the right hemicolon. Appendix: Normal appendix. Intraperitoneal space: Unremarkable. No free air. No significant fluid collection. Vasculature: Unremarkable. No abdominal aortic aneurysm. Lymph nodes: Unremarkable. No enlarged lymph nodes. Urinary bladder: Unremarkable as visualized. Reproductive: Unremarkable as visualized. Bones/joints: Unremarkable. No acute fracture. Soft tissues: Unremarkable. IMPRESSION: 1. Distal esophageal thickening, asymmetric gastroesophageal junction left-sided thickening and enhancement, question esophagitis or mucosal lesion, recommend upper GI and or gastroenterology consultation. Additionally, there is some irregularity of the duodenum proximally suggesting peptic ulcer disease, correlate. 2. Excess stool in the right hemicolon. Electronically signed by: Moncho Oseguera On 02/15/2021 00:54:30 AM
[2021-02-15] MEDS ORDERED: MIRA3350 PO (01:32)
[2021-02-15] MEDS ORDERED: COLA100C5 PO (01:32)
[2021-02-15] MEDS ORDERED: OMEP40CA4 PO (01:32)
== END 2021-02-15 01:50 | disposition home or self-care (01) ==
LOC: M ED 13:43
DX: K59.00 Constipation, unspecified (principal); K20.90 Esophagitis, unspecified without bleeding; K27.5 Chronic or unspecified peptic ulcer, site unspecified, with perforation; R06.02 Shortness of breath; Z86.718 Personal history of other venous thrombosis and embolism; F17.200 Nicotine dependence, unspecified, uncomplicated; Z88.2 Allergy status to sulfonamides; Z88.8 Allergy status to other drugs, medicaments and biological substances
CPT/HCPCS: 74021; 74177; 80048; 80076; 81001; 83690; 83880; 85025; 85652; 93971; 96361; 96374; 99284; J1885; Q9967

== ENCOUNTER → 2021-12-09 | Outpatient (CLI) | payer MEDICARE, BC, OTHER ==
[~2021-12-09] MED LIST changes: +COLA100C5 PO; +MIRA3350 PO; +OMEP40CA4 PO
== END ==
LOC: M PLAIMG 13:14
PROVIDERS: ATTEND Nurse Practitioner Adult Health
DX: R94.2 Abnormal results of pulmonary function studies (principal)

== ENCOUNTER → 2022-08-07 | Outpatient (CLI) | payer MEDICARE, BC, OTHER | LOC: M PLAIMG 11:25 | PROVIDERS: ATTEND Internal Medicine Critical Care Medicine | DX: R91.8 Other nonspecific abnormal finding of lung field (principal) ==

== ENCOUNTER → 2025-03-07 | Outpatient (REF) | payer MEDICARE, OTHER ==
[~2025-03-07] MED LIST changes: +ELIQ5TAB PO; +NOXI1TAB PO; +STIO1AER
[2025-03-07 14:55] LABS: BASO # 0.1 10^3/uL (0.0-0.2); BASO % 1.3 % (0.0-1.0); EOS # 0.2 10^3/uL (0.0-0.5); EOS % 4.8 % (0.0-3.0); LYMPH # 1.6 10^3/uL (1.5-5.0); LYMPH % 34.0 % (24.0-44.0); MONO # 0.5 10^3/uL (0.0-0.8); MONO % 10.4 % (2.0-8.0); NEUTROPHILS # 2.3 10^3/uL (1.5-8.5); NEUTROPHILS % 49.3 % (36.0-66.0); PLATELET COUNT, AUTOMATED 256 10^3/uL (150-450)
[2025-03-07 15:01] LABS: ALT/SGPT 11.0 U/L (7.0-40); AST/SGOT 14.0 U/L (<34); CALCIUM LEVEL 8.7 MG/DL (8.3-10.6); CARBON DIOXIDE LEVEL 34.0 MMOL/L (20-31); CHLORIDE LEVEL 105.0 MMOL/L (98-107); CREATININE FOR GFR 0.71 MG/DL (0.55-1.30); GLOMERULAR FILTRATION RATE 88.1 (>39); POTASSIUM SERUM 4.3 MMOL/L (3.5-5.1); SODIUM LEVEL 144.0 MMOL/L (136-145)
== END ==
LOC: M LABDRWAD 13:26
PROVIDERS: ATTEND Specialist
DX: I82.401 Acute embolism and thrombosis of unspecified deep veins of right lower extremity (principal)